=== PATIENT | female | born 1935 | race Caucasian/White ===

== ENCOUNTER → 2017-12-12 | Outpatient (CLI) | payer OTHER | LOC: EDSEX 06:50 → M.LAB 06:50 | DX: Z01.812 Encounter for preprocedural laboratory examination (principal) ==

== ENCOUNTER → 2018-08-29 | Outpatient (CLI) | payer OTHER ==
[~2018-08-29] VITALS: Ht 157.5 cm; Wt 65.8 kg
[~2018-08-29] MED LIST: ANASTROZOLE1 MG PO; ATORVASTATIN CA40 MG PO; CLARITIN10 MG PO; DIOVAN320 MG PO; EFFEXOR XR37.5 MG PO; HYDROCHLOROTH12.5 M1 PO; LETROZOLE2.5 MG PO; MAGIC MOUTHWASH SWISH&SPIT; MULTIVITAMINS1 EAC7 PO; ONDANSETRON HCL4 M2 PO; PRILOSEC 20 MG20 MG PO; PROZAC10 MG PO; TYLENOL EXTRA500 MG PO; VENTOLIN HFA 1818 GM INH; VITAMIN D5000 UNIT PO; ZANTAC 150MG T150 MG PO
[2018-08-29 11:36] LABS: HEMATOCRIT 38.7 % (37.0-47.0); HEMOGLOBIN 13.7 gm/dL (12.0-15.0); MCH 30.7 pg (26.0-34.0); MCHC 35.3 g/dL (28.0-37.0); MCV 86.9 fL (80.0-100.0); MPV 8.2 fl. (7.2-11.1); RBC 4.45 mil/uL (4.20-5.00); RDW-CV 13.3 % (10.5-14.5); WBC 8.9 thou/uL (4.0-11.0)
[2018-08-29 11:39] VITALS: BP 160/75
[2018-08-29 11:46] LABS: APTT 25.2 Seconds (25.0-31.3); PROTIME 10.6 Seconds (9.20-11.50)
[2018-08-29 12:03] LABS: ALBUMIN 3.8 g/dL (3.4-5.0); CALCIUM 9.4 mg/dL (8.5-10.1); CREATININE 0.9 mg/dL (0.6-1.3); POTASSIUM 3.6 mmol/L (3.5-5.1); TOTAL BILIRUBIN 0.4 mg/dL (<0.1-1.0); TOTAL PROTEIN 7.3 g/dL (6.4-8.2)
[2018-08-29 13:25] VITALS: BP 166/78
== END ==
LOC: M.INT 10:14 → EDSEX 12:00
PROVIDERS: Radiology Diagnostic Radiology
DX: N28.1 Cyst of kidney, acquired (principal); K57.30 Diverticulosis of large intestine without perforation or abscess without bleeding; I77.9 Disorder of arteries and arterioles, unspecified; K42.9 Umbilical hernia without obstruction or gangrene; M47.895 Other spondylosis, thoracolumbar region; Z85.3 Personal history of malignant neoplasm of breast